=== PATIENT | female | born 1995 | race American Indian/Alaskan Native ===

== ENCOUNTER 2016-11-23 19:40 | Emergency (ER) | payer SELFPAY ==
[2016-11-23] MEDS ORDERED: MORPHINE IM ONE (20:12)
[2016-11-23] MEDS ORDERED: ZOFRAN ODT PO ONE (20:12)
[2016-11-23 20:55] LABS: Hematocrit 35.8 % (30.3-42.9); Hemoglobin 11.6 gm/dl (10.1-14.3); Mean Corpuscular HGB Conc 32 % (30-34); Mean Corpuscular Hemoglobin 27 pg (28-32); Mean Corpuscular Volume 83 fl (79-97); Platelet Count 307 K/mm3 (140-440); Red Blood Count 4.33 M/mm3 (3.65-5.03); Red Cell Distribution Width 12.8 % (13.2-15.2); White Blood Count 8.5 K/mm3 (4.5-11.0)
[2016-11-23 21:09] LABS: Partial Thromboplastin Time 30.1 Sec. (24.2-36.6)
[2016-11-23 21:14] LABS: Anion Gap 20 mmol/L; Blood Urea Nitrogen 6 mg/dL (7-17); Calcium 9.2 mg/dL (8.4-10.2); Carbon Dioxide 21 mmol/L (22-30); Chloride 100.4 mmol/L (98-107); Glucose 109 mg/dL (65-100); Potassium 3.7 mmol/L (3.6-5.0); Sodium 138 mmol/L (137-145)
[2016-11-23 21:23] LABS: INR 1.1 (0.87-1.13)
[2016-11-23] MEDS ORDERED: DIPRIVAN 10 MG/ML IV ONE (21:37)
[2016-11-23] MEDS ORDERED: NACL 0.9% 1000 ML 1,000 ML IV ONE (22:56)
[2016-11-23] MEDS ORDERED: NACL ONE (23:54)
--- NOTE | 2016-11-23 23:54 | Emergency Department Report ---
HPI - General Chief Complaint: Extremity Injury, Upper Time Seen by Provider: 11/23/16 19:58 - HPI HPI: The patient is a 21-year-old female who presents for evaluation of arm pain and swelling. The patient reports progressive arm swelling and pain for the past 4 days. Her pain is because for the past one to 2 days, is moderate to severe, throbbing in quality, exacerbated with attempted movement of the right distal arm. She states that her swelling has been progressive as well. The patient denies fever, no trauma to the right arm or elbow, numbness, tingling, color change the distal arm or hand, motor deficit, dyspnea, chest pain, neck pain. ED Past Medical Hx - Past Medical History Previous Medical History?: Yes Hx Psychiatric Treatment: Yes (1013 from [facility]) Hx Asthma: Yes - Surgical History Past Surgical History?: No - Social History Smoking Status: Never Smoker - Medications Home Medications: Home Medications Medication Instructions Recorded Confirmed Last Taken Type Acetaminophen/Codeine [Tylenol #3] 1 tab PO Q6H PRN #12 tab 11/24/16 Unknown Rx Ibuprofen [Motrin] 600 mg PO Q8H PRN #20 tablet 11/24/16 Unknown Rx ED Review of Systems ROS: Stated complaint: RT ARM SWOLLEN Other details as noted in HPI Constitutional: denies: fever ENT: denies: throat or neck pain Respiratory: denies: cough, shortness of breath Cardiovascular: denies: chest pain Endocrine: denies unexplained weight loss or gain Gastrointestinal: denies: abdominal pain, nausea Genitourinary: denies: dysuria Musculoskeletal: Reports right arm pain and swelling Skin: denies: rash Neurological: denies: headache Hematological/Lymphatic: denies: easy bleeding or easy bruising Psych: denies sadness or hopelessness Physical Exam - Physical Exam Vital Signs: Vital Signs 11/23/16 11/23/16 19:49 20:01 Temperature 99.6 F Pulse Rate 110 H Respiratory 18 16 Rate Blood Pressure 148/98 [Left] O2 Sat by Pulse 99 Oximetry Physical Exam: General: well-nourished, well-developed, no acute distress Head: Normocephalic, atraumatic Eyes: normal sclera ENT: Mucous membranes are pink and moist Neck: trachea midline, neck supple, No neck stiffness, no cervical adenopathy Respiratory: Breath sounds equal bilaterally, no wheezing, rales, or rhonchi Cardio: S1 and S2 present, no murmurs, rubs, gallops, capillary refill is brisk Abdomen: Normoactive bowel sounds, soft abdomen, no rigidity, no guarding or rebound tenderness Chest WALL/Back: No tenderness to palpation of the chest wall, no CVA tenderness with percussion Musc: Tenderness and swelling present to the ventral aspect of the right forearm , decreased passive range of motion present to the right elbow, right elbow obvious deformity present, tenderness present to the right elbow, distal pulses intact, distal sensation intact, no color change in the distal right arm or rt hand Skin: No rash Neuro: no facial drooping, normal speech Psych: Normal affect ED Course Vital Signs 11/23/16 11/23/16 19:49 20:01 Temperature 99.6 F Pulse Rate 110 H Respiratory 18 16 Rate Blood Pressure 148/98 [Left] O2 Sat by Pulse 99 Oximetry - Moderate Sedation Indications: fracture/dislocation redu Presedation Evaluation: rt elbow dislocation ASA Class: I Mallampati Airway Score: 1 Time of Last PO Intake: 13:00 Preparation: environmental monitoring technician applied, pulse oximeter, capnometry used, supplemental O2 applied, suction/airway equipment at bedside IV Propofol Dose (mgs): 100 Complications: none Patient Tolerated Procedure: well, no complications - Orthopedic Joint Reduction Joint #1 Consent Obtained: verbal consent Time Out Performed: Yes Side: right Joint Reduction Location: elbow Analgesia: moderate sedation Technique Used: traction/counter-traction Post-Reduction Neuro Exam: intact Post-Reduction Vascular Exam: intact Post Reduction X-Ray Obtained: Yes Post Reduction X-Ray Results: reduced Splint Applied: Yes Patient Tolerated Procedure: well, no complications ED Medical Decision Making - Lab Data Result diagrams: 11/23/16 20:38 11/23/16 20:38 - Medical Decision Making The patient was seen and examined by myself. The patient is placed on a environmental monitoring technician and continuous pulse ox. On initial evaluation, the patient was found to be in no distress. Evaluation orders were placed. The patient is given IV morphine for her pain. X-ray of the right elbow reveals a posterior right elbow dislocation. Conscious sedation and reduction of the dislocated right elbow is successfully performed. A repeat x-ray of the right elbow reveals reduction of right elbow dislocation. Medical records from [facility] reviewed and revealed that the patient received reduction of the right elbow on ED visit [address] scan with IV contrast of the right arm is obtained, to assess for vascular injury secondary to posterior elbow dislocation. Right upper extremity vessels are patent on CTA of the right upper extremity. CAT scan also revealed small radial head fracture, and a lateral epicondyle fracture of the humerus. No signs of vascular injury on CAT scan. A posterior long arm OCL is placed for treatment of radioactive humeral fractures, and to prevent recurrence of dislocation. The patient was reevaluated and reported that their symptoms were markedly improved. The patient is stable for discharge with outpatient follow- up. The patient is given follow-up and return instructions. The patient expressed understanding and agreed with the plan. The patient is discharged in stable condition. Critical care attestation.: If time is entered above; I have spent that time in minutes in the direct care of this critically ill patient, excluding procedure time. ED Disposition Clinical Impression: Closed posterior dislocation of right elbow Qualifiers: Encounter type: initial encounter Qualified Code(s): S53.124A - Posterior dislocation of right ulnohumeral joint, initial encounter Fracture of radial head, right, closed Qualifiers: Encounter type: initial encounter Fracture alignment: nondisplaced Qualified Code(s): S52.124A - Nondisplaced fracture of head of right radius, initial encounter for closed fracture Closed fracture of lateral epicondyle of humerus Qualifiers: Encounter type: initial encounter Fracture morphology: avulsion Fracture alignment: nondisplaced Laterality: right Qualified Code(s): S42.434A - Nondisplaced fracture (avulsion) of lateral epicondyle of right humerus, initial encounter for closed fracture Disposition: DISCHARGED TO HOME OR SELFCARE Is pt being admited?: No Does the pt Need Aspirin: No Condition: Stable Instructions: Elbow Dislocation (ED), Elbow Fracture in Adults (ED) Additional Instructions: Make sure to follow with the referred orthopedic surgeon Dr. Ness. Prescriptions: Acetaminophen/Codeine [Tylenol #3] 1 tab PO Q6H PRN #12 tab PRN Reason: Pain Ibuprofen [Motrin] 600 mg PO Q8H PRN #20 tablet PRN Reason: Pain Referrals: MAU NESS MD [Staff Physician] - 3-5 Days Time of Disposition: 23:54
--- NOTE | 2016-11-24 00:56 | Cat Scan Report ---
FINAL REPORT EXAM: CT ANGIO UPPER EXTREMITY RT HISTORY: right forearm swelling, 4d s/p elbow disclocation COMPARISON: None available. TECHNIQUE: Contiguous axial images were obtained. Additional sagittal and coronal reformatted images were obtained. Administration of IV contrast given per institution protocol. Images submitted for interpretation. FINDINGS: Elbow joint space has been reduced given the patient's history of dislocation. There is an oblique nondisplaced fracture through the radial margin of the radial head. Prominent adjacent soft tissue swelling. There is a tiny well corticated bony fragment at the margin of the lateral humeral epicondyle concerning for avulsive injury of uncertain age (series 2, image 227). Remaining portions of the humerus remaining portions of the radius and ulna are intact. Aortic arch, innominate artery, right subclavian artery, right axillary artery, right brachial artery, right radial and ulnar arteries are patent. IMPRESSION: Reduction of the elbow joint space given the patient's history of dislocation. There is anatomic alignment of the elbow joint space. Subtle nondisplaced fracture of the radial head and tiny avulsive fracture fragment at the margin of the lateral humeral epicondyle. Prominent associated soft tissue swelling. Right upper extremity arterial structures are patent.
[2016-11-24 04:10] VITALS: BP 124/78
--- NOTE | 2016-11-24 08:47 | XRay Report ---
Right forearm 2 views. Findings: There is anterior dislocation of the humerus with no evidence of fracture. Mild soft tissue swelling is noted.
--- NOTE | 2016-11-24 08:48 | XRay Report ---
AP view of the right humerus. Findings: Anteromedial dislocation of the humerus is again identified with no evidence of fracture.
--- NOTE | 2016-11-24 08:49 | XRay Report ---
AP CHEST: AP view of the chest demonstrates a normal mediastinal and cardiac contour with clear lungs and normal bony and soft tissue structures. IMPRESSION: Normal AP chest.
--- NOTE | 2016-11-24 08:50 | XRay Report ---
Right elbow 2 views. Findings: The there is satisfactory reduction of the previously noted humeral dislocation.
== END 2016-11-24 02:30 | disposition home or self-care (01) ==
LOC: ED 19:40
DX: S53.124A Posterior dislocation of right ulnohumeral joint, initial encounter (principal); S52.124A Nondisplaced fracture of head of right radius, initial encounter for closed fracture; S42.434A Nondisplaced fracture (avulsion) of lateral epicondyle of right humerus, initial encounter for closed fracture; J45.909 Unspecified asthma, uncomplicated; X58.XXXA Exposure to other specified factors, initial encounter; Y93.9 Activity, unspecified; Y99.9 Unspecified external cause status; Y92.89 Other specified places as the place of occurrence of the external cause
CPT/HCPCS: 24600; 36415; 71010; 73060; 73070; 73090; 73206; 80048; 84702; 85027; 85610; 85730; 96361; 96374; 99285; J2704; J7030; Q9967

== ENCOUNTER 2021-08-04 22:22 | Emergency (ER) | payer MEDICARE ==
[2021-08-04 22:55] LABS: Basophils % (Auto) 0.5 % (0.0-1.8); Eosinophils % (Auto) 0.7 % (0.0-4.3); Hematocrit 38.4 % (30.3-42.9); Hemoglobin 12.7 gm/dl (10.1-14.3); Lymphocytes # (Auto) 1.4 K/mm3 (1.2-5.4); Lymphocytes % (Auto) 27.4 % (13.4-35.0); Mean Corpuscular HGB Conc 33 % (30-34); Mean Corpuscular Volume 83 fl (79-97); Monocytes # (Auto) 0.4 K/mm3 (0.0-0.8); Monocytes % (Auto) 8.4 % (0.0-7.3); Platelet Count 280 K/mm3 (140-440); Red Blood Count 4.65 M/mm3 (3.65-5.03); Red Cell Distribution Width 13.7 % (13.2-15.2)
[2021-08-04 23:19] LABS: Alanine Aminotransferase 29 units/L (7-56); Albumin 4.5 g/dL (3.9-5); BUN/Creatinine Ratio 9; Blood Urea Nitrogen 7 mg/dL (7-17); Calcium 9.6 mg/dL (8.4-10.2); Hemolysis Index 4
--- NOTE | 2021-08-04 23:58 | Emergency Department Report ---
ED Chest Pain HPI - General Chief Complaint: Chest Pain Stated Complaint: CHEST PAIN/HEART RACING Time Seen by Provider: 08/04/21 22:31 Source: patient Mode of arrival: Ambulatory Limitations: No Limitations - History of Present Illness Initial Comments: Patient is a 26-year-old female presents emergency room complaints of palpitations that began 3 days ago. She states it feels like her heart is racing. She states that she also has substernal chest pain. She denies any radiation of the pain. She states that she has a history of sinus tachycardia. She states that she has seen a machine fitter and had echo performed which she reports was normal. She denies any recent travel, recent surgery, hormone use. She denies any family cardiac history. She denies any fever, cough, nausea, vomiting, diarrhea, diaphoresis, shortness of breath. Past medical history of asthma and schizophrenia and bipolar. She denies any SI or HI. She denies any medication allergies. She states that she is a non-smoker. she endorses edible marijuana use. - Related Data Previous Rx's Medication Instructions Recorded Last Taken Type Acetaminophen/Codeine [Tylenol #3] 1 tab PO Q6H PRN #12 tab 11/24/16 Unknown Rx Ibuprofen [Motrin] 600 mg PO Q8H PRN #20 tablet 11/24/16 Unknown Rx Allergies Allergy/AdvReac Type Severity Reaction Status Date / Time lactose Allergy Unknown Verified 11/23/16 19:49 pollen extracts Allergy Unknown Verified 11/23/16 19:49 watermelon Allergy Unknown Verified 11/23/16 19:49 Heart Score - HEART Score History: Slightly suspicious EKG: Normal Age: < 45 Risk factors: 1-2 risk factors Troponin: < normal limit HEART Score: 1 - EKG Read Time Time EKG Completed: 22:53 EKG Read Time: 22:54 ED Review of Systems ROS: Stated complaint: CHEST PAIN/HEART RACING Other details as noted in HPI Comment: All other systems reviewed and negative ED Past Medical Hx - Past Medical History Hx Psychiatric Treatment: Yes (1013 from [facility]) Hx Asthma: Yes - Surgical History Past Surgical History?: No - Social History Smoking Status: Never Smoker - Medications Home Medications: Home Medications Medication Instructions Recorded Confirmed Last Taken Type Acetaminophen/Codeine [Tylenol #3] 1 tab PO Q6H PRN #12 tab 11/24/16 Unknown Rx Ibuprofen [Motrin] 600 mg PO Q8H PRN #20 tablet 11/24/16 Unknown Rx ED Physical Exam - General Limitations: No Limitations General appearance: alert, in no apparent distress - Head Head exam: Present: atraumatic, normocephalic - Eye Eye exam: Present: normal appearance - ENT ENT exam: Present: mucous membranes moist - Respiratory Respiratory exam: Present: normal lung sounds bilaterally. Absent: respiratory distress, wheezes, rales, rhonchi, stridor, chest wall tenderness, accessory muscle use, decreased breath sounds, prolonged expiratory - Cardiovascular Cardiovascular Exam: Present: regular rate, normal rhythm, normal heart sounds. Absent: systolic murmur, diastolic murmur, rubs, gallop - Neurological Exam Neurological exam: Present: alert, oriented X3 - Psychiatric Psychiatric exam: Present: normal affect, normal mood - Skin Skin exam: Present: warm, dry, intact ED Course Vital Signs 08/04/21 22:25 Temperature 98.2 F Pulse Rate 99 H Respiratory 16 Rate Blood Pressure 153/94 [Left] O2 Sat by Pulse 99 Oximetry ED Medical Decision Making - Lab Data Result diagrams: 08/04/21 22:41 08/04/21 22:41 Lab Results 08/04/21 08/04/21 08/04/21 Range/Units 22:41 22:41 22:41 WBC 5.0 (4.5-11.0) K/mm3 RBC 4.65 (3.65-5.03) M/mm3 Hgb 12.7 (10.1-14.3) gm/dl Hct 38.4 (30.3-42.9) % MCV 83 (79-97) fl MCH 27 L (28-32) pg MCHC 33 (30-34) % RDW 13.7 (13.2-15.2) % Plt Count 280 (140-440) K/mm3 Lymph % (Auto) 27.4 (13.4-35.0) % Tift % (Auto) 8.4 H (0.0-7.3) % Eos % (Auto) 0.7 (0.0-4.3) % Baso % (Auto) 0.5 (0.0-1.8) % Lymph # (Auto) 1.4 (1.2-5.4) K/mm3 Tift # (Auto) 0.4 (0.0-0.8) K/mm3 Eos # (Auto) 0.0 (0.0-0.4) K/mm3 Baso # (Auto) 0.0 (0.0-0.1) K/mm3 Seg Neutrophils % 63.0 (40.0-70.0) % Seg Neutrophils # 3.1 (1.8-7.7) K/mm3 Sodium 138 (137-145) mmol/L Potassium 3.7 (3.6-5.0) mmol/L Chloride 104.7 (98-107) mmol/L Carbon Dioxide 19 L (22-30) mmol/L Anion Gap 18 mmol/L BUN 7 (7-17) mg/dL Creatinine 0.8 (0.6-1.2) mg/dL Estimated GFR > 60 ml/min BUN/Creatinine Ratio 9 % Glucose 94 (65-100) mg/dL Calcium 9.6 (8.4-10.2) mg/dL Magnesium 2.20 (1.7-2.3) mg/dL Total Bilirubin 0.20 (0.1-1.2) mg/dL AST 20 (5-40) units/L ALT 29 (7-56) units/L Alkaline Phosphatase 94 (35-129) units/L Total Creatine Kinase 121 (30-135) units/L Troponin T < 0.010 (0.00-0.029) ng/mL Total Protein 7.9 (6.3-8.2) g/dL Albumin 4.5 (3.9-5) g/dL Albumin/Globulin Ratio 1.3 % TSH 1.920 (0.270-4.200) mlU/mL HCG, Qual (Negative) 08/04/21 Range/Units 22:41 WBC (4.5-11.0) K/mm3 RBC (3.65-5.03) M/mm3 Hgb (10.1-14.3) gm/dl Hct (30.3-42.9) % MCV (79-97) fl MCH (28-32) pg MCHC (30-34) % RDW (13.2-15.2) % Plt Count (140-440) K/mm3 Lymph % (Auto) (13.4-35.0) % Tift % (Auto) (0.0-7.3) % Eos % (Auto) (0.0-4.3) % Baso % (Auto) (0.0-1.8) % Lymph # (Auto) (1.2-5.4) K/mm3 Tift # (Auto) (0.0-0.8) K/mm3 Eos # (Auto) (0.0-0.4) K/mm3 Baso # (Auto) (0.0-0.1) K/mm3 Seg Neutrophils % (40.0-70.0) % Seg Neutrophils # (1.8-7.7) K/mm3 Sodium (137-145) mmol/L Potassium (3.6-5.0) mmol/L Chloride (98-107) mmol/L Carbon Dioxide (22-30) mmol/L Anion Gap mmol/L BUN (7-17) mg/dL Creatinine (0.6-1.2) mg/dL Estimated GFR ml/min BUN/Creatinine Ratio % Glucose (65-100) mg/dL Calcium (8.4-10.2) mg/dL Magnesium (1.7-2.3) mg/dL Total Bilirubin (0.1-1.2) mg/dL AST (5-40) units/L ALT (7-56) units/L Alkaline Phosphatase (35-129) units/L Total Creatine Kinase (30-135) units/L Troponin T (0.00-0.029) ng/mL Total Protein (6.3-8.2) g/dL Albumin (3.9-5) g/dL Albumin/Globulin Ratio % TSH (0.270-4.200) mlU/mL HCG, Qual Negative (Negative) - EKG Data EKG shows normal: sinus rhythm, axis, intervals, QRS complexes, ST-T waves Rate: normal - Radiology Data Radiology results: report reviewed Ordering Physician: GIA DEMARCO Date of Service: 08/04/21 Procedure(s): XR chest routine 2V Accession Number(s): [id number] cc: GIA DEMARCO Fluoro Time In Minutes: CHEST 2 VIEWS INDICATION / CLINICAL INFORMATION: Chest pain. History of sinus tachycardia. COMPARISON: 11/23/16 FINDINGS: SUPPORT DEVICES: None. HEART / MEDIASTINUM: No significant abnormality. LUNGS / PLEURA: No significant pulmonary or pleural abnormality. No pneumothorax. ADDITIONAL FINDINGS: No significant additional findings. IMPRESSION: 1. No acute findings. Signer Name: Rubio Gaona MD Signed: 08/04/2021 11:51 PM Workstation Name: [id number] Transcribed By: CHANCE Dictated By: Louie Gaona MD Electronically Authenticated By: Louie Gaona MD Signed Date/Time: 08/04/212350 DD/ 50 TD/TT: - Medical Decision Making Patient is a 26-year-old female presents emergency room complaints of palpitations that began 3 days ago. She states it feels like her heart is racing. She states that she also has substernal chest pain. She denies any radiation of the pain. She states that she has a history of sinus tachycardia. She states that she has seen a machine fitter and had echo performed which she re ports was normal. She denies any recent travel, recent surgery, hormone use. She denies any family cardiac history. She denies any fever, cough, nausea, vomiting, diarrhea, diaphoresis, shortness of breath. Past medical history of asthma and schizophrenia and bipolar. She denies any SI or HI. She denies any medication allergies. She states that she is a non-smoker. she endorses edible marijuana use. Vitals are stable. EKG is within normal limits. Labs are stable. Chest x-ray with no acute process. PERC criteria negative for PE, PE unlikely. Heart score is 1, low risk for cardiac event. Patient is requesting outpatient referral for anxiety, patient given a list of outpatient mental health resources, she has no SI, no HI, no hallucinations. Discussed all results with patient, answered questions. Patient be referred to primary care and outpatient cardiology. Discussed return precautions. Advised patient Follow-up with your primary care doctor. Follow-up with a machine fitter. Please avoid caffeine use, stimulants, energy drinks, marijuana use. Return to emergency room for any new or worsening symptoms Critical care attestation.: If time is entered above; I have spent that time in minutes in the direct care of this critically ill patient, excluding procedure time. ED Disposition Clinical Impression: Palpitations Chest pain Qualifiers: Chest pain type: unspecified Qualified Code(s): R07.9 - Chest pain, unspecified Disposition: HOME / SELF CARE / HOMELESS Is pt being admited?: No Does the pt Need Aspirin: No Condition: Stable Instructions: Nonspecific Chest Pain, Adult, Palpitations Additional Instructions: Follow-up with your primary care doctor. Follow-up with a machine fitter. Please avoid caffeine use, stimulants, energy drinks, marijuana use. Return to emergency room for any new or worsening symptoms Referrals: SEAMUS HOFFMANN MD [Staff Physician] - 2-3 Days your, primary care doctor [Other] - 2-3 Days Time of Disposition: 00:12 Print Language: SYRIAC
[2021-08-05 01:44] VITALS: BP 148/80
--- NOTE | 2021-08-05 11:58 | Electrocardiograph Report ---
[facility] Test Date: 2021-08-04 Test Time: 22:53:34 Pat Name: HENRY ESPINOZA Department: Room: Gender: F Catering Server: BLOSSOM : [id number] Requested By: CASH ESCAMILLA Order Number: [id number] Reading MD: Jagruti Yung Measurements Intervals [place] Rate: 98 P: 48 AK: 134 QRS: 56 QRSD: 89 T: 43 QT: 344 QTc: 438 Interpretive Statements Sinus rhythm Consider left ventricle hypertrophy No previous ECG available for comparison Electronically Signed On 08-05-2021 11:58:45 EST by Jagruti Yung
== END 2021-08-05 01:29 | disposition home or self-care (01) ==
LOC: ED 22:22
DX: R00.2 Palpitations (principal); R06.02 Shortness of breath; Z91.018 Allergy to other foods; Z91.040 Latex allergy status; J45.909 Unspecified asthma, uncomplicated
CPT/HCPCS: 36415; 71046; 80053; 82550; 83735; 84443; 84484; 84703; 85025; 93005